=== PATIENT | female | born 1990 | race Caucasian/White ===

== ENCOUNTER 2021-10-12 21:00 | Emergency (ER) | payer OTHER ==
[2021-10-12 21:14] VITALS: BMI 27.3
[2021-10-12] MEDS ORDERED: SODIUM CHLORIDE 0.9% 500 ML INFUS.BAG IV ONE (22:15)
[2021-10-12] MEDS ORDERED: KETOROLAC TROMETHAMINE 30 MG/1 ML VIAL IVPUSH ONE (22:15)
[2021-10-12] MEDS ORDERED: FAMOTIDINE 20 MG/50 ML IVPB 20 MG/50 ML MG IVPB ONE ×2 (22:15→22:31)
[2021-10-12] MEDS ORDERED: KETOROLAC TROMETHAMINE 30 MG/1 ML VIAL ONE (22:30)
[2021-10-12 22:49] LABS: BASO % 0.4 % (0-2.0); EOS % 1.8 % (0-4.5); HEMATOCRIT 39.9 % (32.4-45.2); LYMPH % 19.2 % (8-40); MCH 32.5 pg (25.7-33.7); MCHC 35.2 g/dl (32.0-36.0); MEAN CELL VOLUME 92.3 fl (80-96); MONO % 12.3 % (3.8-10.2); NEUT % 66.3 % (42.8-82.8); PLATELET COUNT 115 10^3/uL (134-434); RBC 4.32 M/mm3 (3.60-5.2); RDW 12.4 % (11.6-15.6); WHITE BLOOD COUNT 7.2 K/mm3 (4.0-10.0)
[2021-10-12 22:51] LABS: EPI CELLS 4 /uL (0-25.1); HYALINE CASTS 10 /uL (0-3.1); PH,URINE 8.5 (5.0-8.0); URINE APPEARANCE CLEAR; URINE BACTERIA 4250 /uL (0-1359); URINE BILIRUBIN NEGATIVE (NEGATIVE); URINE COLOR YELLOW; URINE GLUCOSE (UA) NEGATIVE (NEGATIVE); URINE KETONE 2+ (NEGATIVE); URINE LEUK ESTERASE 1+ (NEGATIVE); URINE NITRITE NEGATIVE (NEGATIVE); URINE PROTEIN TRACE (NEGATIVE); URINE RBC 13 /uL (0-23.9); URINE UROBILINOGEN 0.2 mg/dL (0.2-1.0); URINE WBC 296 /uL (0-25.8)
[2021-10-12 23:20] LABS: CALCIUM 8.6 mg/dL (8.5-10.1)
[2021-10-12 23:21] LABS: ALBUMIN 3.7 g/dl (3.4-5.0); BLOOD UREA NITROGEN 8.7 mg/dL (7-18)
[2021-10-12 23:24] LABS: CREATININE 0.7 mg/dL (0.55-1.3)
[2021-10-12 23:26] LABS: BILIRUBIN,TOTAL 0.4 mg/dL (0.2-1); TOT PROT 7.4 g/dl (6.4-8.2)
[2021-10-13] MEDS ORDERED: AMOX TR/POT CLAV 875MG/125MG TABLETS (FP) PO ONE (00:29)
[2021-10-13 00:41] VITALS: BP 95/60; PULSE 96
[2021-10-13] MEDS ORDERED: AMOX TR/POT CLAV 875MG/125MG TABLETS (FP) ONE (00:42)
[2021-10-13] MEDS ORDERED: ACETAMINOPHEN 325 MG TABLET (FP) PO ONE (01:15)
[2021-10-13] MEDS ORDERED: SODIUM CHLORIDE 0.9% 500 ML INFUS.BAG IV ONE (01:18)
[2021-10-13] MEDS ORDERED: ACETAMINOPHEN 325 MG TABLET (FP) ONE (01:19)
[2021-10-13 01:54] VITALS: TEMP 101.3
== END 2021-10-13 02:28 | disposition home or self-care (01) ==
LOC: JER 21:00
PROC: 3E033GC Introduction of Other Therapeutic Substance into Peripheral Vein, Percutaneous Approach (ICD-10-PCS; principal; 2021-10-12)
DX: K52.9 Noninfective gastroenteritis and colitis, unspecified (principal)
CPT/HCPCS: 36415; 74177-TC; 80053; 81003; 82272; 84703; 85025; 86850; 86900; 86901; 87045; 87046; 87086; 87186; 87205; 96365; 96375; 99285-25

== ENCOUNTER 2021-11-20 02:32 | Emergency (ER) | payer OTHER ==
[2021-11-20 02:44] VITALS: BP 95/67; PULSE 64; TEMP 97.6; BMI 27.7
[2021-11-20] MEDS ORDERED: ACETAMINOPHEN 500 MG TABLET (FP) PO ONE (02:52)
[2021-11-20] MEDS ORDERED: ACETAMINOPHEN 325 MG TABLET (FP) ONE (02:56)
[2021-11-20 03:21] LABS: EPI CELLS 5 /uL (0-25.1); HYALINE CASTS 0 /uL (0-3.1); PH,URINE 5.5 (5.0-8.0); URINE APPEARANCE CLEAR; URINE BACTERIA 53 /uL (0-1359); URINE BILIRUBIN NEGATIVE (NEGATIVE); URINE COLOR YELLOW; URINE GLUCOSE (UA) NEGATIVE (NEGATIVE); URINE KETONE NEGATIVE (NEGATIVE); URINE LEUK ESTERASE TRACE (NEGATIVE); URINE NITRITE NEGATIVE (NEGATIVE); URINE PROTEIN NEGATIVE (NEGATIVE); URINE RBC 2 /uL (0-23.9); URINE UROBILINOGEN 0.2 mg/dL (0.2-1.0); URINE WBC 21 /uL (0-25.8)
[2021-11-20 03:24] LABS: HCG,QUALITATIVE URINE Negative
== END 2021-11-20 04:11 | disposition home or self-care (01) ==
LOC: JER 02:32
DX: R07.89 Other chest pain (principal)
CPT/HCPCS: 81003; 84703; 99283-25